=== PATIENT | female | born 1955 | race Two or more races ===

== ENCOUNTER 2022-04-15 11:20 | Outpatient (CLI) | payer OTHER | END 2022-04-15 12:20 | disposition home or self-care (01) | LOC: ASH CLINIC 11:20 | PROVIDERS: ATTEND Emergency Medicine | DX: U07.1 COVID-19 (principal) ==

== ENCOUNTER 2022-07-05 12:08 | Emergency (ER) | payer OTHER ==
[~2022-07-05] VITALS: Ht 177.8 cm; Wt 124.7 kg
== END 2022-07-05 14:05 | disposition home or self-care (01) ==
LOC: ER 12:08
DX: S70.02XA Contusion of left hip, initial encounter (principal); S70.12XA Contusion of left thigh, initial encounter; S30.0XXA Contusion of lower back and pelvis, initial encounter; W19.XXXA Unspecified fall, initial encounter; Y93.89 Activity, other specified; Y92.89 Other specified places as the place of occurrence of the external cause; Y99.9 Unspecified external cause status